=== PATIENT | male | born 1960 | race Caucasian/White ===

== ENCOUNTER 2019-09-24 10:06 | Outpatient (CLI) | payer OTHER ==
--- NOTE | 2019-09-24 11:18 | RAD ---
TWO VIEW CHEST: HISTORY: Cough. COMPARISON: No comparison. FINDINGS: Cardiomegaly. Vascular markings within normal range. There are small bilateral effusions. No focal infiltrate. Osseous structures are unremarkable. IMPRESSION: Cardiomegaly. Small bilateral effusions. POS: H
== END 2019-09-24 10:07 | disposition home or self-care (01) ==
LOC: RAD-FRANK 10:06
PROVIDERS: ATTEND Nurse Practitioner Family
DX: R05 Cough (principal); I51.7 Cardiomegaly; J90 Pleural effusion, not elsewhere classified
CPT/HCPCS: 71046